=== PATIENT | male | born 1990 | race Caucasian/White ===

== ENCOUNTER 2019-10-10 19:53 | Emergency (ER) | payer OTHER ==
[2019-10-10 20:00] VITALS: BP 120/77; PULSE 81; RESP 18; TEMP 98.5
[2019-10-10] MEDS ORDERED: cefTRIAXone 250 MG VIAL IM STA (20:22)
[2019-10-10] MEDS ORDERED: AZITHROMYCIN 250 MG TAB PO STA (20:22)
--- NOTE | 2019-10-10 20:36 | ED ---
Male Urogenital HPI - General Chief complaint: Urogenital Stated complaint: Flank Pain Time Seen by Provider: 10/10/19 20:01 Source: patient Mode of arrival: ambulatory Limitations: no limitations - History of Present Illness Initial comments: Patient is 29-year-old male presenting to emergency Department with a chief complaint of painful urination. Patient states he is concerned for STDs. Patient does report unprotected sex. States since yesterday as developed increased frequency urgency and dysuria. Patient does report white/edwards urethral discharge. Does report his urine is darker than usual but denies any hematuria hematochezia or melena. Denies any genital lesions. Patient denies any fevers or chills. Denies any abdominal pain nausea vomiting or diarrhea. - Related Data Previous Rx's Medication Instructions Recorded Sulfamethox-Tmp 800-160Mg [Bactrim 1 each PO Q12HR #14 tab 10/10/19 Ds] metroNIDAZOLE [Flagyl] 500 mg PO BID #14 tab 10/10/19 Allergies Allergy/AdvReac Type Severity Reaction Status Date / Time No Known Allergies Allergy Verified 10/10/19 20:00 Review of Systems ROS Statement: Those systems with pertinent positive or pertinent negative responses have been documented in the HPI. ROS Other: All systems not noted in ROS Statement are negative. Past Medical History Past Medical History: No Reported History History of Any Multi-Drug Resistant Organisms: None Reported Past Surgical History: No Surgical Hx Reported Past Psychological History: Anxiety Smoking Status: Current every day smoker Past Alcohol Use History: Occasional Past Drug Use History: None Reported General Exam Limitations: no limitations General appearance: alert, in no apparent distress Head exam: Present: atraumatic, normocephalic, normal inspection Eye exam: Present: normal appearance Pupils: Present: normal accommodation ENT exam: Present: normal exam Neck exam: Present: normal inspection Respiratory exam: Present: normal lung sounds bilaterally Cardiovascular Exam: Present: regular rate, normal rhythm, normal heart sounds exam: Present: normal inspection, urethral discharge (White/edwards). Absent: scrotal swelling Extremities exam: Present: normal inspection, full ROM Back exam: Present: normal inspection, full ROM. Absent: tenderness, CVA tenderness (R), CVA tenderness (L) Neurological exam: Present: alert, oriented X3 Psychiatric exam: Present: normal affect, normal mood Skin exam: Present: warm, dry, intact, normal color Course Vital Signs 10/10/19 19:57 Temperature 98.5 F Pulse Rate 81 Respiratory 18 Rate Blood Pressure 120/77 O2 Sat by Pulse 98 Oximetry Medical Decision Making - Medical Decision Making Patient is 29-year-old male presenting to emergency Department with a chief complaint of painful urination. On exam patient does have urethral white/edwards discharge. Patient does report dysuria. Patient is concerned for STDs and would like to be treated in the ED. Gonorrhea and chlamydia urethral samples pending. Urine culture pending. Patient given Rocephin and azithromycin in the ED. Patient also discharged with metronidazole for 7 days. UTI evident in the UA. Patient was treated with Bactrim. Patient advised not to drink alcohol while taking the medication. Patient advised to avoid any sexual behavior for the next 3 weeks. Return parameters discussed. Case discussed with physician. - Lab Data Lab Results 10/10/19 Range/Units 20:44 Urine Color Yellow Urine Appearance Cloudy (Clear) Urine pH 6.5 (5.0-8.0) Ur Specific [place] 1.027 (1.001-1.035) Urine Protein Trace H (Negative) Urine Glucose (UA) Negative (Negative) Urine Ketones Negative (Negative) Urine Blood Trace H (Negative) Urine Nitrite Negative (Negative) Urine Bilirubin Negative (Negative) Urine Urobilinogen <2.0 (<2.0) mg/dL Ur Leukocyte Esterase Large H (Negative) Urine RBC 12 H (0-5) /hpf Urine WBC 148 H (0-5) /hpf Urine Bacteria Rare H (None) /hpf Urine Mucus Rare H (None) /hpf Disposition Clinical Impression: STI (sexually transmitted infection), Dysuria Disposition: HOME SELF-CARE Condition: Stable Instructions (If sedation given, give patient instructions): Sexually Transmitted Diseases (ED) Additional Instructions: Take prescribed medication as directed. Avoid any sexual contact for the next 3 weeks. Avoid any drinking alcohol taking medication. Prescriptions: Sulfamethox-Tmp 800-160Mg [Bactrim Ds] 1 each PO Q12HR #14 tab metroNIDAZOLE [Flagyl] 500 mg PO BID #14 tab Is patient prescribed a controlled substance at d/c from ED?: No Referrals: Lennox Couch MD [Primary Care Provider] - 1-2 days Time of Disposition: 20:35
[2019-10-10 21:08] LABS: Appearance,Urine Cloudy (Clear); Bacteria,Urine Rare /hpf; Bilirubin,Urine Negative (Negative); Blood,Urine Trace (Negative); Color,Urine Yellow; Glucose,Urine (UA) Negative (Negative); Ketones,Urine Negative (Negative); Leukocyte Esterase,Urine Large (Negative); Mucus,Urine Rare /hpf; Nitrite,Urine Negative (Negative); PH, Urine 6.5 (5.0-8.0); Protein,Urine Trace (Negative); RBC,Urine 12 /hpf (0-5); Specific Gravity,Urine 1.027 (1.001-1.035); Urobilinogen,Urine <2.0 mg/dL (<2.0); WBC,Urine 148 /hpf (0-5)
== END 2019-10-10 21:29 | disposition home or self-care (01) ==
LOC: EC 19:53
DX: A64 Unspecified sexually transmitted disease (principal); N39.0 Urinary tract infection, site not specified; F17.200 Nicotine dependence, unspecified, uncomplicated
CPT/HCPCS: 87491; 81001; 87086; 99284; 96372; J0696

== ENCOUNTER 2020-11-08 04:42 | Emergency (ER) | payer OTHER ==
[2020-11-08 04:49] VITALS: RESP 24; TEMP 98.7
[2020-11-08 04:51] VITALS: PULSE 87
--- NOTE | 2020-11-08 05:13 | ED ---
Altered Mental Status HPI - General Chief Complaint: Overdose Stated Complaint: Poss overdose Time Seen by Provider: 11/08/20 05:01 Source: patient, RN notes reviewed, old records reviewed Mode of arrival: ambulatory Limitations: no limitations - History of Present Illness Initial Comments: This is a 22-year-old male who was admitted for possible opiate overdose. Accidental ingestion. Patient uses drugs. Patient brought in by EMS for evaluation of possible. Ingestion. Patient is without significant complaint otherwise MD Complaint: altered mental status, confusion -: unknown Severity: mild Consistency of Symptoms: waxing and waning Context: other (none) Associated Symptoms: denies other symptoms - Related Data Previous Rx's Medication Instructions Recorded Sulfamethox-Tmp 800-160Mg [Bactrim 1 each PO Q12HR #14 tab 10/10/19 Ds] metroNIDAZOLE [Flagyl] 500 mg PO BID #14 tab 10/10/19 Allergies Allergy/AdvReac Type Severity Reaction Status Date / Time No Known Allergies Allergy Verified 10/10/19 20:00 Review of Systems ROS Statement: Those systems with pertinent positive or pertinent negative responses have been documented in the HPI. ROS Other: All systems not noted in ROS Statement are negative. Past Medical History Past Medical History: No Reported History History of Any Multi-Drug Resistant Organisms: None Reported Past Surgical History: No Surgical Hx Reported Past Psychological History: Anxiety Smoking Status: Current every day smoker Past Alcohol Use History: Occasional Past Drug Use History: None Reported General Exam Limitations: no limitations General appearance: alert, in no apparent distress Head exam: Present: atraumatic, normocephalic, normal inspection Eye exam: Present: normal appearance, PERRL, EOMI. Absent: scleral icterus, conjunctival injection, periorbital swelling ENT exam: Present: normal exam, mucous membranes moist Neck exam: Present: normal inspection. Absent: tenderness, meningismus, lymphadenopathy Respiratory exam: Present: normal lung sounds bilaterally. Absent: respiratory distress, wheezes, rales, rhonchi, stridor Cardiovascular Exam: Present: regular rate, normal rhythm, normal heart sounds. Absent: systolic murmur, diastolic murmur, rubs, gallop, clicks GI/Abdominal exam: Present: soft, normal bowel sounds. Absent: distended, tenderness, guarding, rebound, rigid Extremities exam: Present: normal inspection, full ROM, normal capillary refill. Absent: tenderness, pedal edema, joint swelling, calf tenderness Back exam: Present: normal inspection Neurological exam: Present: alert, oriented X3, CN II-XII intact Psychiatric exam: Present: normal affect, normal mood Skin exam: Present: warm, dry, intact, normal color. Absent: rash Course Vital Signs 11/08/20 11/08/20 11/08/20 04:44 04:49 05:00 Temperature 98.7 F Pulse Rate 97 90 Pulse Rate [ 87 Draw End Hand ] Respiratory 24 Rate Blood Pressure 121/89 121/89 O2 Sat by Pulse 100 98 Oximetry 11/08/20 06:00 Temperature Pulse Rate 87 Pulse Rate [ Draw End Hand ] Respiratory Rate Blood Pressure 112/62 O2 Sat by Pulse 93 L Oximetry - Reevaluation(s) Reevaluation #1: Medical record is reviewed Patient symptoms are significantly improved here in the emergency department Patient family informed of results, questions answered Medical Decision Making - Medical Decision Making 30 male of accidental or possible poisoning by fentanyl, patient's negative for all drugs. No treatment needed patient can be discharged home - Lab Data Lab Results 11/08/20 Range/Units 04:56 Urine Color Colorless Urine Appearance Clear (Clear) Urine pH 6.0 (5.0-8.0) Ur Specific [place] 1.002 (1.001-1.035) Urine Protein Negative (Negative) Urine Glucose (UA) Negative (Negative) Urine Ketones Negative (Negative) Urine Blood Negative (Negative) Urine Nitrite Negative (Negative) Urine Bilirubin Negative (Negative) Urine Urobilinogen <2.0 (<2.0) mg/dL Ur Leukocyte Esterase Negative (Negative) Urine Opiates Screen Not Detected (NotDetected) Ur Oxycodone Screen Not Detected (NotDetected) Urine Methadone Screen Not Detected (NotDetected) Ur Propoxyphene Screen Not Detected (NotDetected) Ur Barbiturates Screen Not Detected (NotDetected) U Tricyclic Antidepress Not Detected (NotDetected) Ur Phencyclidine Scrn Not Detected (NotDetected) Ur Amphetamines Screen Not Detected (NotDetected) U Methamphetamines Scrn Not Detected (NotDetected) U Benzodiazepines Scrn Not Detected (NotDetected) Urine Cocaine Screen Not Detected (NotDetected) U Marijuana (THC) Screen Not Detected (NotDetected) Disposition Clinical Impression: Accidental drug overdose, Poisoning by opiates and related narcotics, other Disposition: HOME SELF-CARE Condition: Good Instructions (If sedation given, give patient instructions): Adult Overdose (ED) Is patient prescribed a controlled substance at d/c from ED?: No Referrals: Lennox Couch MD [Primary Care Provider] - 1-2 days
[2020-11-08 05:52] LABS: Appearance,Urine Clear (Clear); Bilirubin,Urine Negative (Negative); Blood,Urine Negative (Negative); Color,Urine Colorless; Glucose,Urine (UA) Negative (Negative); Ketones,Urine Negative (Negative); Leukocyte Esterase,Urine Negative (Negative); Nitrite,Urine Negative (Negative); Protein,Urine Negative (Negative); Urobilinogen,Urine <2.0 mg/dL (<2.0)
[2020-11-08 05:53] LABS: Amphetamine Screen,Urine Not Detected (NotDetected); Barbiturate Screen,Urine Not Detected (NotDetected); Benzodiazepines Screen,Urine Not Detected (NotDetected); Cocaine Screen,Urine Not Detected (NotDetected); Methadone Screen, Urine Not Detected (NotDetected); Opiate Screen,Urine Not Detected (NotDetected); Oxycodone Screen, Urine Not Detected (NotDetected); Phencyclidine Screen,Urine Not Detected (NotDetected); Specific Gravity,Urine 1.002 (1.001-1.035); Tricyclic Antidepressant,Urine Not Detected (NotDetected); Urn Cannabinoid Scrn Not Detected (NotDetected)
[2020-11-08 06:24] VITALS: BP 112/62
== END 2020-11-08 06:25 | disposition home or self-care (01) ==
LOC: EC 04:42
DX: T40.601A Poisoning by unspecified narcotics, accidental (unintentional), initial encounter (principal); F41.9 Anxiety disorder, unspecified; F17.200 Nicotine dependence, unspecified, uncomplicated
CPT/HCPCS: 80306; 81003; 93005; 99284

== ENCOUNTER 2023-03-11 23:21 | Emergency (ER) | payer OTHER ==
--- NOTE | 2023-03-11 23:47 | ED ---
General Adult HPI - General Source: patient Mode of arrival: ambulatory Limitations: no limitations - History of Present Illness -: unknown Improves with: none Worsens with: none Associated Symptoms: denies other symptoms Treatments Prior to Arrival: none <MaximoEj - Last Filed: 03/12/23 07:48> <PatriciaChele Mini - Last Filed: 03/12/23 13:20> - General Chief complaint: Psychiatric Symptoms Stated complaint: Mental Health Time Seen by Provider: 03/11/23 23:38 - History of Present Illness Initial comments: This patient is a 32-year-old man who is brought to have psychiatric evaluation after he was found having bizarrely in public. Reportedly he was telling people to kill him. Patient is brought in by law enforcement to have psychiatric evaluation. (Ej Marsh) - Related Data Previous Rx's Medication Instructions Recorded Sulfamethox-Tmp 800-160Mg [Bactrim 1 each PO Q12HR #14 tab 10/10/19 Ds] metroNIDAZOLE [Flagyl] 500 mg PO BID #14 tab 10/10/19 Allergies Allergy/AdvReac Type Severity Reaction Status Date / Time No Known Allergies Allergy Verified 03/11/23 23:31 Review of Systems ROS Other: All systems not noted in ROS Statement are negative. Limitations: ROS unobtainable due to patients medical condition <MaximoEj - Last Filed: 03/12/23 07:48> ROS Other: All systems not noted in ROS Statement are negative. <Chele Gomez - Last Filed: 03/12/23 13:20> ROS Statement: Those systems with pertinent positive or pertinent negative responses have been documented in the HPI. Past Medical History Past Medical History: No Reported History History of Any Multi-Drug Resistant Organisms: None Reported Past Surgical History: No Surgical Hx Reported Past Psychological History: Anxiety Smoking Status: Current every day smoker Past Alcohol Use History: Occasional Past Drug Use History: None Reported <Ej Marsh - Last Filed: 03/12/23 07:48> General Exam Limitations: no limitations General appearance: alert, appears intoxicated, anxious Head exam: Present: atraumatic, normocephalic Eye exam: Present: normal appearance. Absent: scleral icterus, conjunctival injection ENT exam: Present: normal oropharynx Neck exam: Present: normal inspection, full ROM. Absent: tenderness Respiratory exam: Present: normal lung sounds bilaterally. Absent: respiratory distress, wheezes, rales, rhonchi, stridor Cardiovascular Exam: Present: regular rate, normal rhythm, normal heart sounds. Absent: systolic murmur, diastolic murmur, rubs, gallop GI/Abdominal exam: Present: soft. Absent: distended, tenderness, guarding, rebound, rigid, mass Extremities exam: Present: normal inspection, normal capillary refill. Absent: pedal edema, calf tenderness Neurological exam: Present: alert, CN II-XII intact. Absent: motor sensory deficit Psychiatric exam: Present: anxious, manic. Absent: agitated, flat affect, homicidal ideation, suicidal ideation Skin exam: Present: warm, dry, intact, normal color. Absent: rash <Ej Marsh - Last Filed: 03/12/23 07:48> Course Vital Signs 03/11/23 03/12/23 03/12/23 23:32 01:00 03:35 Temperature 98.1 F Pulse Rate 77 71 Respiratory 18 19 18 Rate Blood Pressure 167/53 O2 Sat by Pulse 98 94 L Oximetry 03/12/23 03/12/23 03/12/23 04:00 08:27 10:00 Temperature 97.8 F Pulse Rate 62 68 Respiratory 18 20 16 Rate Blood Pressure 110/76 118/60 O2 Sat by Pulse 98 98 Oximetry Procedures - Restraint - Face to Face Restraint Occurrence 1 Patient's Immediate Situation: Endangers self safety, Endangers others' safety, Violent behavior Patient's Reaction to the Intervention: Belligerent, Bizarre, Suspicious, Restless Patient's Medical & Behavioral Condition: Manic, Bizarre behavior Need to Continue or Terminate Restraint or Seclusion: Continue Face to Face Eval of Restraint Date: 03/11/23 Face to Face Eval of Restraint Time: 23:40 <Ej Marsh - Last Filed: 03/12/23 07:48> Medical Decision Making <Ej Marsh - Last Filed: 03/12/23 07:48> <Chele Gomez - Last Filed: 03/12/23 13:20> - Medical Decision Making Patient is 32-year-old man brought by law enforcement to have psychiatric evaluation. Initially the patient is confrontational, uncooperative, and behaving and bizarre fashion. Patient initially placed into restraints and medication was ordered however patient did respond to verbal de-escalation and not long after arrival is taken out of restraints. Pending EPS evaluation after sobriety. (Ej Marsh) Was pt. sent in by a medical professional or institution (, PA, [employer], urgent ca re, hospital, or fci...) When possible be specific @ -No Did you speak to anyone other than the patient for history (EMS, parent, family, police, friend...)? What history was obtained from this source @ -No Did you review nursing and triage notes (agree or disagree)? Why? @ -I reviewed and agree with nursing and triage notes Were old charts reviewed (outside hosp., previous admission, EMS record, old EKG, old radiological studies, urgent care reports/EKG's, fci records)? Report findings @ -No old charts were reviewed Differential Diagnosis (chest pain, altered mental status, abdominal pain women, abdominal pain men, vaginal bleeding, weakness, fever, dyspnea, syncope, headache, dizziness, GI bleed, back pain, seizure, CVA, palpatations, mental health, musculoskeletal)? @ Differential Mental Health Depression, anxiety, bipolar, psychosis, schizophrenia, borderline personality, situational depression, adjustment disorder, behavioral disorder, brain tumor, malingering, substance abuse, encephalopathy, medication reaction, dementia, hypothyroidism, degenerative neurologic disorder, lupus.... This is not meant to be all-inclusive list EKG interpreted by me (3pts min.). @ -As above X-rays interpreted by me (1pt min.). @ -None done CT interpreted by me (1pt min.). @ -None done U/S interpreted by me (1pt. min.). @ -None done What testing was considered but not performed or refused? (CT, X-rays, U/S, labs)? Why? @ -None What meds were considered but not given or refused? Why? @ -None Did you discuss the management of the patient with other professionals (professionals i.e. , [employer], [employer], lab, RT, psych nurse, long term care social worker, locksmith, teacher, eeo officer, caser up)? Give summary @ -[Patient evaluated by EPS Was smoking cessation discussed for >3mins.? @ -No Was critical care preformed (if so, how long)? @ -No Were there social determinants of health that impacted care today? How? (Homelessness, low income, unemployed, alcoholism, drug addiction, transportation, low edu. Level, literacy, decrease access to med. care, long-term, rehab)? @ -No Was there de-escalation of care discussed even if they declined (Discuss DNR or withdrawal of care, Hospice)? DNR status @ -No What co-morbidities impacted this encounter? (DM, HTN, Smoking, COPD, CAD, Cancer, CVA, ARF, Chemo, Hep., AIDS, mental health diagnosis, sleep apnea, morbid obesity)? @ -None Was patient admitted / discharged? Hospital course, mention meds given and route, prescriptions, significant lab abnormalities, going to OR and other pertinent info. @ -6-year-old emergency department for psychiatric evaluation. Patient is remorseful, now no longer suicidal. He is able to have a safety plan with EPS. Stable for discharge Undiagnosed new problem with uncertain prognosis? @ -No Drug Therapy requiring intensive monitoring for toxicity (Heparin, Nitro, Insulin, Cardizem)? @ -No Were any procedures done? @ -No Diagnosis/symptom? @ -Depression Acute, or Chronic, or Acute on Chronic? @ -default Uncomplicated (without systemic symptoms) or Complicated (systemic symptoms)? @ -default Side effects of treatment? @ -No Exacerbation, Progression, or Severe Exacerbation? @ -No Poses a threat to life or bodily function? How? (Chest pain, [place], [place], pneumonia, PE, COPD, DKA, ARF, appy, cholecystitis, CVA, Diverticulitis, Homicidal, Suicidal, threat to staff... and all critical care pts) @ -Low-risk at this time (Chele Gomez) - Lab Data Lab Results 03/12/23 Range/Units 00:51 Urine Opiates Screen Not Detected (NotDetected) Ur Oxycodone Screen Not Detected (NotDetected) Urine Methadone Screen Not Detected (NotDetected) Ur Propoxyphene Screen Not Detected (NotDetected) Ur Barbiturates Screen Not Detected (NotDetected) U Tricyclic Antidepress Not Detected (NotDetected) Ur Phencyclidine Scrn Not Detected (NotDetected) Ur Amphetamines Screen Not Detected (NotDetected) U Methamphetamines Scrn Not Detected (NotDetected) U Benzodiazepines Scrn Not Detected (NotDetected) Urine Cocaine Screen Not Detected (NotDetected) U Marijuana (THC) Screen Not Detected (NotDetected) Disposition <Ej Marsh - Last Filed: 03/12/23 07:48> Is patient prescribed a controlled substance at d/c from ED?: No Time of Disposition: 13:20 <Chele Gomez - Last Filed: 03/12/23 13:20> Clinical Impression: Psychosis, Depression Disposition: HOME SELF-CARE Condition: Fair Instructions (If sedation given, give patient instructions): Depression (ED) Referrals: Lennox Couch MD [Primary Care Provider] - 1-2 days
[2023-03-11] MEDS ORDERED: LORazepam 2 MG/ML INJ IM STA (23:54)
[2023-03-11] MEDS ORDERED: ZIPRASIDONE 20 MG VIAL IM STA (23:54)
[2023-03-12 01:27] LABS: Amphetamine Screen,Urine Not Detected (NotDetected); Barbiturate Screen,Urine Not Detected (NotDetected); Benzodiazepines Screen,Urine Not Detected (NotDetected); Cocaine Screen,Urine Not Detected (NotDetected); Methadone Screen, Urine Not Detected (NotDetected); Opiate Screen,Urine Not Detected (NotDetected); Oxycodone Screen, Urine Not Detected (NotDetected); Phencyclidine Screen,Urine Not Detected (NotDetected); Tricyclic Antidepressant,Urine Not Detected (NotDetected); Urn Cannabinoid Scrn Not Detected (NotDetected)
[2023-03-12 08:28] VITALS: TEMP 97.8
[2023-03-12 10:37] VITALS: PULSE 68
[2023-03-12 13:46] VITALS: BP 121/75; RESP 18
== END 2023-03-12 13:46 | disposition home or self-care (01) ==
LOC: EC 23:21
DX: F32.A Depression, unspecified (principal); F29 Unspecified psychosis not due to a substance or known physiological condition; F17.200 Nicotine dependence, unspecified, uncomplicated; Z86.59 Personal history of other mental and behavioral disorders
CPT/HCPCS: 80306; 82075; 99285

== ENCOUNTER 2023-08-19 12:19 | Emergency (ER) | payer OTHER ==
[2023-08-19 12:37] VITALS: BP 149/80; PULSE 69; RESP 16; TEMP 98.4
[2023-08-19] MEDS ORDERED: KETOROLAC 15 MG/ML 1 ML VIAL IM STA (12:46)
[2023-08-19] MEDS ORDERED: LIDOCAINE 4% PATCH TOPICAL STA (12:46)
--- NOTE | 2023-08-19 12:48 | ED ---
General Adult HPI - General Chief complaint: Back Pain/Injury Stated complaint: Left side pain Time Seen by Provider: 08/19/23 12:37 Source: patient, RN notes reviewed, old records reviewed Mode of arrival: ambulatory Limitations: no limitations - History of Present Illness Initial comments: Patient Is a 32-year-old male who presents with Department complaining of mechanical back pain. States she bent over while doing laundry yesterday and felt a pulling, tightening sensation in his left back. States it is worse with movement since that time. He does not seem to be improving. Denies any movement of the pain. Is isolated to the left back. Denies any falls or traumas. Denies any midline back pain or right-sided back pain. Denies any flank pain or abdominal pain. Has no other acute complaints at this time. Presents for further evaluation. Patient's mother states that could be a kidney stone he has no other symptoms of kidney stones denying any radiation of the pain, hematuria, dysuria. It is a very specific onset of the pain with a particular movement. Presents for further evaluation at this time.Denies any saddle paresthesias or anesthesias. Denies any lower extremity paralysis. Denies any urinary or bowel incontinence or retention. - Related Data Previous Rx's Medication Instructions Recorded Sulfamethox-Tmp 800-160Mg [Bactrim 1 each PO Q12HR #14 tab 10/10/19 Ds] metroNIDAZOLE [Flagyl] 500 mg PO BID #14 tab 10/10/19 Cyclobenzaprine [Flexeril] 5 mg PO TID PRN 5 Days #15 tablet 08/19/23 Lidocaine 5% Patch [Lidoderm 5% 1 patch TOPICAL DAILY PRN 14 Days 08/19/23 Patch] #14 patch Allergies Allergy/AdvReac Type Severity Reaction Status Date / Time No Known Allergies Allergy Verified 08/19/23 12:29 Review of Systems ROS Statement: Those systems with pertinent positive or pertinent negative responses have been documented in the HPI. Review of Systems: CONST: Denies fever EYES: Denies blurry vision ENT: Denies nasal congestion C/V: Denies Chest pain RESP: Denies shortness of breath GI: Denies abdominal pain : Denies dysuria SKIN: Denies rash. MSK: Endorses back pain NEURO: Denies headache ROS Other: All systems not noted in ROS Statement are negative. Past Medical History Past Medical History: No Reported History History of Any Multi-Drug Resistant Organisms: None Reported Past Surgical History: No Surgical Hx Reported Past Psychological History: Anxiety Smoking Status: Current every day smoker Past Alcohol Use History: Occasional Past Drug Use History: None Reported General Exam - General Exam Comments Initial Comments: General: Appears in no acute distress. HEAD: Normal with no signs of head trauma. EYES: EOMI. ENT: Hearing grossly intact. RESPIRATORY: No respiratory distress. C/V: Regular rate and rhythm. ABD: Abdomen is nondistended. EXT: No obvious deformity. No midline cervical, thoracic, lumbar spine tenderness palpation. Pelvis is stable. Patient does have left lumbar paraspinal muscle tenderness with palpation. Somewhat worse with movements. No flank pain. No CVA tenderness to percussion. No abdominal pain. SKIN: No rashes or lesions observed on exposed skin. NEURO: Alert and oriented 4. Able to ambulate without issue. No obvious focal deficits. Limitations: no limitations Course Vital Signs 08/19/23 12:29 Temperature 98.4 F Pulse Rate 69 Respiratory 16 Rate Blood Pressure 149/80 O2 Sat by Pulse 99 Oximetry Medical Decision Making - Medical Decision Making Was pt. sent in by a medical professional or institution (, PA, [employer], urgent care, hospital, or shelter...) When possible be specific @ -No Did you speak to anyone other than the patient for history (EMS, parent, family, police, friend...)? What history was obtained from this source @ -No Did you review nursing and triage notes (agree or disagree)? Why? @ -I reviewed and agree with nursing and triage notes Were old charts reviewed (outside hosp., previous admission, EMS record, old EKG, old radiological studies, urgent care reports/EKG's, shelter records)? Report findings @ -No old charts were reviewed Differential Diagnosis (chest pain, altered mental status, abdominal pain women, abdominal pain men, vaginal bleeding, weakness, fever, dyspnea, syncope, headache, dizziness, GI bleed, back pain, seizure, CVA, palpatations, mental health, musculoskeletal)? @ -Differential Musculoskeletal Muscular strain, contusion, ligament sprain, fracture, arthritis, septic arthritis, bursitis, cellulitis, muscle spasm, nerve compression, DVT, arterial occlusion, herpes zoster, electrolyte abnormality, tumor.... This is not meant to be in all inclusive list EKG interpreted by me (3pts min.). @ -None done X-rays interpreted by me (1pt min.). @ -None done CT interpreted by me (1pt min.). @ -None done U/S interpreted by me (1pt. min.). @ -None done What testing was considered but not performed or refused? (CT, X-rays, U/S, labs)? Why? @ -Considered ultrasound or imaging for kidney stone. Considered workup for kidney stone. Patient's mother was concerned for that but after discussing his symptoms we made ajoint decision not to pursue this at this time. Seems to be musculoskeletal skeletal injury based on his complaints. What meds were considered but not given or refused? Why? @ -None Did you discuss the management of the patient with other professionals (professionals i.e. , PA, [employer], lab, RT, psych nurse, professor of social work, watch crystal edge grinder, teacher, ground intelligence officer, director case management)? Give summary @ -No Was smoking cessation discussed for >3mins.? @ -No Was critical care preformed (if so, how long)? @ -No Were there social determinants of health that impacted care today? How? (Homelessness, low income, unemployed, alcoholism, drug addiction, transportation, low edu. Level, literacy, decrease access to med. care, custodial, rehab)? @ -No Was there de-escalation of care discussed even if they declined (Discuss DNR or withdrawal of care, Hospice)? DNR status @ -No What co-morbidities impacted this encounter? (DM, HTN, Smoking, COPD, CAD, Cancer, CVA, ARF, Chemo, Hep., AIDS, mental health diagnosis, sleep apnea, morbid obesity)? @ -None Was patient admitted / discharged? Hospital course, mention meds given and route, prescriptions, significant lab abnormalities, going to OR and other pertinent info. @ -Based on the patient's presentation and physical exam, I do believe he is likely experiencing musculoskeletal back pain. Seems to be a muscle strain. His mother was concerned that it may be a kidney stone. However he has a very obvious action that caused the pain. He has no radiation of pain or urinary complaints at this time. No history of kidney stones. I did offer possible ultrasound imaging basic labs to screen for kidney stone however after discussion we both agreed and made a decision that he will return if symptoms persist. He is in agreement that is likely muscle strain. No concern for cauda equina syndrome at this time. He has no bony tenderness and therefore imaging is deferred at this time. Vital signs are within acceptable limits. Patient will be given a lidocaine patch, Toradol injection, and discharged home. He was in agreement with this plan. I will provide the patient with a prescription for Flexeril, lidocaine patch. I instructed the patient to follow up with their PCP in the next 1-3 days. I explained that the patient should return to the emergency department if they experience any worsening symptoms. Strict return precautions were discussed with the patient. The patient expressed understanding of these instructions. I answered all questions that the patient had. The patient was discharged home in good condition with their prescriptions and follow up information. Undiagnosed new problem with uncertain prognosis? @ -No Drug Therapy requiring intensive monitoring for toxicity (Heparin, Nitro, Insulin, Cardizem)? @ -No Were any procedures done? @ -No Diagnosis/symptom? @ -Mechanical back pain, muscle strain Acute, or Chronic, or Acute on Chronic? @ -Acute Uncomplicated (without systemic symptoms) or Complicated (systemic symptoms)? @ -Uncomplicated Side effects of treatment? @ -No Exacerbation, Progression, or Severe Exacerbation? @ -No Poses a threat to life or bodily function? How? (Chest pain, [place], [place], pneumonia, PE, COPD, DKA, ARF, appy, cholecystitis, CVA, Diverticulitis, Homicidal, Suicidal, threat to staff... and all critical care pts) @ -No Disposition Clinical Impression: Mechanical back pain, Muscle strain Disposition: HOME SELF-CARE Condition: Good Instructions (If sedation given, give patient instructions): Acute Low Back Pain (ED) Prescriptions: Cyclobenzaprine [Flexeril] 5 mg PO TID PRN 5 Days #15 tablet PRN Reason: Pain Lidocaine 5% Patch [Lidoderm 5% Patch] 1 patch TOPICAL DAILY PRN 14 Days #14 patch PRN Reason: Pain Is patient prescribed a controlled substance at d/c from ED?: No Referrals: Lennox Couch MD [Primary Care Provider] - 1-2 days Time of Disposition: 12:47
== END 2023-08-19 16:51 | disposition home or self-care (01) ==
LOC: EC 12:19
DX: S29.012A Strain of muscle and tendon of back wall of thorax, initial encounter (principal); F17.200 Nicotine dependence, unspecified, uncomplicated; Z86.59 Personal history of other mental and behavioral disorders; X58.XXXA Exposure to other specified factors, initial encounter
CPT/HCPCS: 99283; 96372; J1885